=== PATIENT | female | born 2000 | race Caucasian/White ===

== ENCOUNTER 2020-03-08 18:03 | Emergency (ER) | payer MEDICAID ==
[~2020-03-08] VITALS: Ht 167.6 cm; Wt 88.5 kg
[2020-03-08 18:17] VITALS: BP 138/71
[2020-03-08 18:30] VITALS: BP 138/71
[2020-03-08] MEDS ORDERED: LIDOCAINE MPF 1% 10 MG/ML VIAL INJ ONE (18:30)
[2020-03-08] MEDS ORDERED: KETOROLAC 30 MG/ML VIAL IM ONE (18:30)
[2020-03-08] MEDS ORDERED: BACITRACIN OINT 500 UNITS/GM PKT TP ONE (18:30)
== END 2020-03-08 19:47 | disposition home or self-care (01) ==
LOC: MED 18:03
DX: S91.311A Laceration without foreign body, right foot, initial encounter (principal); W18.39XA Other fall on same level, initial encounter; Y93.89 Activity, other specified; Y92.89 Other specified places as the place of occurrence of the external cause; Y99.8 Other external cause status
CPT/HCPCS: 12001; 73630; 90471; 90715; 96372; 99284; J1885; J2001; Q0092; 99283

== ENCOUNTER 2023-05-21 18:11 | Emergency (ER) | payer BC, MEDICAID ==
[~2023-05-21] VITALS: Ht 167.6 cm; Wt 100.7 kg
[2023-05-21 18:18] VITALS: BP 131/75; PULSE 88; RESP 20; TEMP 97.8; O2SAT 98
[2023-05-21 19:28] LABS: APPEARANCE,URINE CLEAR (CLEAR); BILIRUBIN,URINE NEGATIVE (NEGATIVE); BLOOD, URINE NEGATIVE (NEGATIVE); COLOR,URINE YELLOW (YELLOW); LEUKOCYTE ESTERASE ,URINE NEGATIVE (NEGATIVE); NITRITE, URINE NEGATIVE (NEGATIVE); PROTEIN,URINE NEGATIVE (NEGATIVE); UGLUCOSE NEGATIVE (NEGATIVE); UROBILINOGEN,URINE 0.2 EU/dL (0.2 - 1)
[2023-05-21 19:30] VITALS: BP 123/78; PULSE 94; RESP 14
[2023-05-21 19:31] VITALS: O2SAT 98
[2023-05-21 19:35] VITALS: O2SAT 98
[2023-05-21] MEDS ORDERED: FLUC150T PO (20:09)
== END 2023-05-21 20:17 | disposition home or self-care (01) ==
LOC: MED 18:11
DX: B37.31 Acute candidiasis of vulva and vagina (principal); Z98.890 Other specified postprocedural states
CPT/HCPCS: 81003; 81025; 99283

== ENCOUNTER 2024-04-08 16:55 | Emergency (ER) | payer BC ==
[~2024-04-08] VITALS: Ht 167.6 cm; Wt 86.2 kg
[~2024-04-08 16:55] MED LIST: FLUC150T PO
[2024-04-08 17:56] VITALS: BP 121/74; PULSE 79; RESP 20; TEMP 98.3; O2SAT 99
[2024-04-08 18:42] VITALS: O2SAT 99
[2024-04-08 19:00] LABS: APPEARANCE,URINE CLEAR (CLEAR); BILIRUBIN,URINE NEGATIVE (NEGATIVE); BLOOD, URINE NEGATIVE (NEGATIVE); COLOR,URINE YELLOW (YELLOW); LEUKOCYTE ESTERASE ,URINE NEGATIVE (NEGATIVE); NITRITE, URINE NEGATIVE (NEGATIVE); PROTEIN,URINE NEGATIVE (NEGATIVE); UGLUCOSE NEGATIVE (NEGATIVE)
[2024-04-08 19:27] LABS: BASOPHILS % (AUTO) 0.4 % (0.0-2.0); EOSINOPHILS # (AUTO) 0.1 K/uL (0-0.4); HEMATOCRIT 37.1 % (36-48); HEMOGLOBIN 12.5 g/dL (12.0-16.0); LYMPHOCYTES # (AUTO) 3.2 K/uL (2.5-16.5); LYMPHOCYTES % (AUTO) 31.3 % (20.5-51.1); MEAN CORPUSCULAR HEMOGLOBIN 29 pg (27-31); MEAN CORPUSCULAR HGB CONC 34 g/dL (33-37); MEAN CORPUSCULAR VOLUME 85.5 fL (80-94); MONOCYTES # (AUTO) 0.6 K/uL (0.8-1.0); MONOCYTES % (AUTO) 6.3 % (1.7-9.3); NEUTROPHILS # (AUTO) 6.2 K/uL (1.8-7.7); PLATELET COUNT (AUTO) 271 K/uL (140-450); RED BLOOD CELL COUNT(AUTO) 4.34 MIL/uL (4.20-5.40); RED CELL DISTRIBUTION WIDTH 16.3 % (11.6-13.7); WHITE BLOOD COUNT (AUTO) 10.2 K/uL (4.8-10.8)
[2024-04-08 20:50] VITALS: BP 117/68; PULSE 75; RESP 17; TEMP 98.3; O2SAT 100
== END 2024-04-08 19:35 | disposition home or self-care (01) ==
LOC: MED 16:55
DX: O20.0 Threatened abortion (principal); M19.90 Unspecified osteoarthritis, unspecified site; Z3A.10 10 weeks gestation of pregnancy; Z79.899 Other long term (current) drug therapy
CPT/HCPCS: 36415; 81003; 81025; 84702; 85025; 86900; 86901; 99284